=== PATIENT | female | born 1965 | race Caucasian/White ===

== ENCOUNTER 2016-07-21 04:18 | Emergency (ER) | payer SELFPAY ==
[~2016-07-21] VITALS: Ht 157.5 cm; Wt 46.3 kg
--- NOTE | 2016-07-21 04:59 | PHYS DOC ---
Past Medical History Past Medical History: High Cholesterol Additional Past Medical Histor: lupus, vit D diff. Past Surgical History: Additional Past Surgical Histo: ablasion, breast enlargement, R. shoulder Alcohol Use: Occasionally Drug Use: None Adult General Chief Complaint Chief Complaint: PAIN ON URINATION HPI HPI Patient is a 50 year old female who presents with dysuria. Patient reports since Tuesday she has had pressure in her lower abdomen that is accompanied by dysuria and urinary frequency. She now has pain in bilateral lower back. She denies any fever. She has been taking Azo at home with insufficient relief. No other acute complaints. Review of Systems Review of Systems Constitutional: Denies fever or chills Eyes: Denies change in visual acuity or eye pain HENT: Denies nasal congestion or sore throat Respiratory: Denies cough or shortness of breath Cardiovascular: Denies chest pain GI: Lower abdominal pain. Denies nausea, vomiting, bloody stools or diarrhea : Dysuria, frequency Musculoskeletal: Lower back pain Integument: Denies rash or skin lesions Neurologic: Denies headache, focal weakness or sensory changes Current Medications Current Medications Current Medications Medications (Trade) Dose Ordered Sig/Daniel Start Time Stop Time Status Last Admin Dose Admin Ceftriaxone Sodium (Rocephin 1gm Ivpb For Omni) 50 ml @ 100 mls/hr 1X ONCE 07/21/16 05:45 07/21/16 06:14 DC 07/21/16 05:48 100 MLS/HR Morphine Sulfate 4 mg 4 mg 1X ONCE 07/21/16 05:15 07/21/16 05:16 DC 07/21/16 05:15 4 MG Ondansetron HCl (Zofran) 4 mg 1X ONCE 07/21/16 05:15 07/21/16 05:16 DC 07/21/16 05:15 4 MG Sodium Chloride (Iv Sodium Chloride 0.9% 1000ml Bag) 1,000 ml @ 1,000 mls/hr Q1H 07/21/16 05:00 07/21/16 05:59 DC 07/21/16 05:16 1,000 MLS/HR Allergies Allergies Allergies Coded Allergies Type Severity Reaction Last Updated Verified codeine Allergy Unknown rash 07/21/16 Yes levofloxacin Allergy Unknown rash 07/21/16 Yes Physical Exam Physical Exam Constitutional: Well developed, well nourished, no acute distress, non-toxic appearance HENT: Normocephalic, atraumatic, bilateral external ears normal Eyes: EOMI, conjunctiva normal, no discharge Neck: Normal range of motion, no stridor Cardiovascular: Heart rate normal, regular rhythm, no murmur Lungs & Thorax: Bilateral breath sounds clear to auscultation Abdomen: Bowel sounds normal, soft, non-distended, suprapubic TTP without guarding or rebound Skin: Warm, dry, no erythema, no rash Back: B/l CVA tenderness Extremities: No obvious deformity, no edema Neurologic: Alert and oriented X 3, no gross deficits noted Current Patient Data Vital Signs Vital Signs Date Time Temp Pulse Resp B/P Pulse Ox O2 Delivery O2 Flow Rate FiO2 07/21/16 05:15 18 07/21/16 04:40 97.8 106 148/87 95 Room Air 97.8 Lab Values Laboratory Tests Test 07/21/16 04:50 07/21/16 04:59 Urine Collection Type Void Urine Color [place] Urine Clarity Cloudy Urine pH 6.5 Urine Specific [place] 1.015 Urine Protein 100mg/dL (NEG-TRACE) Urine Glucose (UA) Negativemg/dL (NEG) Urine Ketones (Stick) Negativemg/dL (NEG) Urine Blood Moderate (NEG) Urine Nitrite Positive (NEG) Urine Bilirubin Negative (NEG) Urine Urobilinogen Dipstick 1.0mg/dL (0.2 mg/dL) Urine Leukocyte Esterase Large (NEG) Urine RBC Fobs/HPF (0-2) Urine WBC Tntc/HPF (0-4) Urine Squamous Epithelial Cells Few/LPF Urine Bacteria Many/HPF (0-FEW) Urine Mucus Mod/LPF White Blood Count 9.1x10^3/uL (4.0-11.0) Red Blood Count 4.29x10^6/uL (3.50-5.40) Hemoglobin 14.0g/dL (12.0-15.5) Hematocrit 41.8% (36.0-47.0) Mean Corpuscular Volume 97fL (79-100) Mean Corpuscular Hemoglobin 33pg (25-35) Mean Corpuscular Hemoglobin Concent 34g/dL (31-37) Red Cell Distribution Width 12.9% (11.5-14.5) Platelet Count 222x10^3/uL (140-400) Neutrophils (%) (Auto) 54% (31-73) Lymphocytes (%) (Auto) 28% (24-48) Monocytes (%) (Auto) 15% (0-9) H Eosinophils (%) (Auto) 3% (0-3) Basophils (%) (Auto) 1% (0-3) Neutrophils # (Auto) 4.8x10^3uL (1.8-7.7) Lymphocytes # (Auto) 2.5x10^3/uL (1.0-4.8) Monocytes # (Auto) 1.4x10^3/uL (0.0-1.1) H Eosinophils # (Auto) 0.3x10^3/uL (0.0-0.7) Basophils # (Auto) 0.0x10^3/uL (0.0-0.2) Sodium Level 138mmol/L (136-145) Potassium Level 4.5mmol/L (3.5-5.1) Chloride Level 101mmol/L (98-107) Carbon Dioxide Level 28mmol/L (21-32) Anion Gap 9 (6-14) Blood Urea Nitrogen 11mg/dL (7-20) Creatinine 0.7mg/dL (0.6-1.0) Estimated GFR (Cockcroft-Gault) 89.3 BUN/Creatinine Ratio 16 (6-20) Glucose Level 96mg/dL (70-99) Calcium Level 9.4mg/dL (8.5-10.1) Total Bilirubin 0.3mg/dL (0.2-1.0) Aspartate Amino Transferase (AST) 33U/L (15-37) Alanine Aminotransferase (ALT) 42U/L (14-59) Alkaline Phosphatase 71U/L (46-116) Total Protein 8.1g/dL (6.4-8.2) Albumin 3.6g/dL (3.4-5.0) Albumin/Globulin Ratio 0.8 (1.0-1.7) L Lipase 104U/L (73-393) Laboratory Tests 07/21/16 04:59 Laboratory Tests 07/21/16 04:59 EKG EKG [] Radiology/Procedures Radiology/Procedures [] Course & Med Decision Making Course & Med Decision Making Pertinent Labs and Imaging studies reviewed. (See chart for details) Patient is 50-year-old female who presents with dysuria, lower abdominal pain, back pain. Suspect urinary tract infection. Will check UA, labs to evaluate. IV fluids, pain meds, nausea medicine ordered to evaluate. Labs largely unremarkable. UA consistent with UTI. Dose of Rocephin ordered. She has allergy to levofloxacin and adverse reaction to Bactrim, will use a cephalosporin to treat. Patient discharged with prescription for cefixime and short course of tramadol, instructions for close follow-up, return precautions. Dragon Disclaimer Dragon Disclaimer This electronic medical record was generated, in whole or in part, using a voice recognition dictation system. Departure Departure Impression: Primary Impression: UTI (urinary tract infection) Disposition: HOME, SELF-CARE Condition: IMPROVED Referrals: NO PCP (PCP) Patient Instructions: Urinary Tract Infection Additional Instructions: Thank you for allowing us to provide care today in the Emergency Department. Take the provided medication as directed. Use caution when taking the pain medication as it can make you drowsy. Schedule a follow up appointment with your primary care doctor. Return promptly to the Emergency Department if you develop any new or concerning symptoms. Scripts Tramadol Hcl 50 Mg [id number] Mg PO Q6H PRN PAIN #10 TAB Prov:HEATHER BURDEN MD 07/21/16 Cefixime (Suprax)400 Mg [id number] Mg PO DAILY #7 Prov:HEATHER BURDEN MD 07/21/16 HEATHER BURDEN MD Jul 21, 2016 04:59
[2016-07-21] MEDS ORDERED: IV NORMAL SALINE 1000ML BAG 1,000 ML IV SCH (05:00)
[2016-07-21 05:05] LABS: BILIRUBIN,URINE NEGATIVE (NEG); GLUCOSE,URINE NEGATIVE (NEG); NITRITE,URINE POSITIVE (NEG); PH,URINE 6.5; PROTEIN,URINE 100 mg/dL (NEG-TRACE)
[2016-07-21 05:10] LABS: BASO % 1 % (0-3); EOS % 3 % (0-3); HEMATOCRIT 41.8 % (36.0-47.0); LYMPH # 2.5 x10^3/uL (1.0-4.8); LYMPH % 28 % (24-48); MEAN CORPUSCULAR HEMOGLOBIN 33 pg (25-35); MEAN CORPUSCULAR HGB CONC 34 g/dL (31-37); MEAN CORPUSCULAR VOLUME 97 fL (79-100); MONO % 15 % (0-9); NEUT % 54 % (31-73); PLATELET COUNT 222 x10^3/uL (140-400); RED BLOOD COUNT 4.29 x10^6/uL (3.50-5.40); RED CELL DISTRIBUTION WIDTH 12.9 % (11.5-14.5); WHITE BLOOD COUNT 9.1 x10^3/uL (4.0-11.0)
[2016-07-21] MEDS ORDERED: ONDANSETRON PF 4 MG/2 ML VIAL. IV ONE (05:15)
[2016-07-21] MEDS ORDERED: MORPHINE SULFATE 4 MG/ML DISP.SYRIN. IV ONE (05:15)
[2016-07-21 05:21] LABS: CALCIUM 9.4 mg/dL (8.5-10.1); CREATININE 0.7 mg/dL (0.6-1.0); GFR 89.3; POTASSIUM 4.5 mmol/L (3.5-5.1)
[2016-07-21 05:27] LABS: ALBUMIN 3.6 g/dL (3.4-5.0); ALBUMIN/GLOBULIN RATIO 0.8 (1.0-1.7); TOTAL BILIRUBIN 0.3 mg/dL (0.2-1.0); TOTAL PROTEIN 8.1 g/dL (6.4-8.2)
[2016-07-21 05:27] LABS: BACTERIA,URINE MANY /HPF (0-FEW); RBC,URINE FOBS /HPF (0-2); WBC,URINE TNTC /HPF (0-4)
[2016-07-21 05:28] LABS: SQUAMOUS EPITHELIAL CELL,UR FEW /LPF
[2016-07-21] MEDS ORDERED: CEFTRIAXONE 1GM IVPB FOR OMNI 50 ML IV ONE (05:45)
[2016-07-21] MEDS ORDERED: CEFI400C PO (06:02)
[2016-07-21] MEDS ORDERED: TRAM50TA PO (06:02)
[2016-07-21 06:26] VITALS: BP 124/72
== END 2016-07-21 06:33 | disposition home or self-care (01) ==
LOC: ER 04:18
DX: N39.0 Urinary tract infection, site not specified (principal); E78.00 Pure hypercholesterolemia, unspecified; Z88.1 Allergy status to other antibiotic agents; Z88.5 Allergy status to narcotic agent
CPT/HCPCS: 36415; 80053; 81001; 83690; 85027; 87086; 96361; 96365; 96375; 99284; J0690; J2270; J2405; J7030

== ENCOUNTER 2018-08-05 23:36 | Emergency (ER) | payer BC ==
[~2018-08-05] VITALS: Ht 157.5 cm; Wt 53.5 kg
[~2018-08-05 23:36] MED LIST: CEFI400C PO; TRAM50TA PO
[2018-08-05 23:55] VITALS: BP 153/87
[2018-08-06 00:09] LABS: BASO # 0.1 x10^3/uL (0.0-0.2); BASO % 1 % (0-3); EOS # 0.2 x10^3/uL (0.0-0.7); EOS % 2 % (0-3); HEMATOCRIT 43.3 % (36.0-47.0); HEMOGLOBIN 14.5 g/dL (12.0-15.5); LYMPH # 3.4 x10^3/uL (1.0-4.8); LYMPH % 36 % (24-48); MEAN CORPUSCULAR HEMOGLOBIN 33 pg (25-35); MEAN CORPUSCULAR HGB CONC 33 g/dL (31-37); MEAN CORPUSCULAR VOLUME 98 fL (79-100); MONO # 0.9 x10^3/uL (0.0-1.1); MONO % 9 % (0-9); NEUT # 4.8 x10^3uL (1.8-7.7); NEUT % 52 % (31-73); PLATELET COUNT 260 x10^3/uL (140-400); RED BLOOD COUNT 4.43 x10^6/uL (3.50-5.40); WHITE BLOOD COUNT 9.3 x10^3/uL (4.0-11.0)
[2018-08-06 00:35] LABS: CALCIUM 9.2 mg/dL (8.5-10.1); CREATININE 0.8 mg/dL (0.6-1.0); GFR 75.9; POTASSIUM 3.9 mmol/L (3.5-5.1)
[2018-08-06 00:41] LABS: ALBUMIN 4.1 g/dL (3.4-5.0); ALBUMIN/GLOBULIN RATIO 0.9 (1.0-1.7); MAGNESIUM 2.5 mg/dL (1.8-2.4); TOTAL BILIRUBIN 0.2 mg/dL (0.2-1.0); TOTAL PROTEIN 8.6 g/dL (6.4-8.2)
[2018-08-06 00:50] LABS: CREATINE KINASE 92 U/L (26-192)
[2018-08-06 00:52] LABS: FREE T4 0.93 ng/dL (0.76-1.46); THYROID STIM HORMONE (TSH) 2.356 uIU/mL (0.358-3.74)
[2018-08-06] MEDS ORDERED: LORazepam 1 MG TABLET PO ONE (01:00)
--- NOTE | 2018-08-06 01:11 | PHYS DOC ---
Past Medical History Past Medical History: High Cholesterol Additional Past Medical Histor: lupus, vit D diff., LUPUS FOG (MEMORY LOSS) Past Surgical History: Additional Past Surgical Histo: ablasion, breast enlargement, R. shoulder Alcohol Use: Occasionally Drug Use: None Adult General Chief Complaint Chief Complaint: Palpitations HPI HPI 52-year-old female presents with report of palpitations with concern for possible "atrial fibrillation". Patient reports has had similar occurrences but has never lasted as long as this one. Patient reports this episode lasted approximately one hour. Patient reports family history. Denies trauma. Patient does report some increased anxiety due to life stressors. Spouse does report some concern as patient has been drinking more alcohol recently. Review of Systems Review of Systems Constitutional: Denies fever or chills [] Eyes: Denies change in visual acuity, redness, or eye pain [] HENT: Denies nasal congestion or sore throat [] Respiratory: Denies cough or shortness of breath [] Cardiovascular: Denies chest pain; reports palpitations GI: Denies abdominal pain, nausea, vomiting, or diarrhea [] : Denies dysuria or hematuria [] Musculoskeletal: Denies back pain or joint pain [] Integument: Denies rash or skin lesions [] Neurologic: Denies headache, focal weakness or sensory changes [] Psychiatric: Reports anxiety, reports ETOH abuse, reports increased life stressors Complete systems were reviewed and found to be within normal limits, except as documented in this note. Current Medications Current Medications Current Medications Medications (Trade) Dose Ordered Sig/Daniel Start Time Stop Time Status Last Admin Dose Admin Lorazepam (Ativan) 0.5 mg 1X ONCE 08/06/18 01:00 08/06/18 01:01 DC 08/06/18 00:58 0.5 MG Allergies Allergies Allergies Coded Allergies Type Severity Reaction Last Updated Verified codeine Allergy Intermediate rash 08/06/18 Yes levofloxacin Allergy Intermediate rash 08/06/18 Yes Physical Exam Physical Exam Constitutional: Well developed, well nourished, crying, appears anxious HENT: Normocephalic, atraumatic, oropharynx moist Eyes: Conjunctiva normal, no discharge. [] Neck: Normal range of motion, no tenderness, supple Cardiovascular: Heart rate regular rhythm, no murmur [] Lungs & Thorax: Bilateral breath sounds clear to auscultation [] Abdomen: Bowel sounds normal, soft, no tenderness Skin: Warm, dry, no erythema, no rash. [] Extremities: No tenderness, ROM intact, no edema. [] Neurologic: Alert and oriented X 3, normal motor function, normal sensory function, no focal deficits noted. [] Psychologic: Affect anxious Current Patient Data Vital Signs Vital Signs Date Time Temp Pulse Resp B/P (MAP) Pulse Ox O2 Delivery O2 Flow Rate FiO2 08/05/18 23:55 97.5 88 32 153/87 (109) 94 Room Air 97.5 Lab Values Laboratory Tests Test 08/05/18 00:01 08/06/18 00:01 White Blood Count 9.3 x10^3/uL (4.0-11.0) Red Blood Count 4.43 x10^6/uL (3.50-5.40) Hemoglobin 14.5 g/dL (12.0-15.5) Hematocrit 43.3 % (36.0-47.0) Mean Corpuscular Volume 98 fL (79-100) Mean Corpuscular Hemoglobin 33 pg (25-35) Mean Corpuscular Hemoglobin Concent 33 g/dL (31-37) Red Cell Distribution Width 13.0 % (11.5-14.5) Platelet Count 260 x10^3/uL (140-400) Neutrophils (%) (Auto) 52 % (31-73) Lymphocytes (%) (Auto) 36 % (24-48) Monocytes (%) (Auto) 9 % (0-9) Eosinophils (%) (Auto) 2 % (0-3) Basophils (%) (Auto) 1 % (0-3) Neutrophils # (Auto) 4.8 x10^3uL (1.8-7.7) Lymphocytes # (Auto) 3.4 x10^3/uL (1.0-4.8) Monocytes # (Auto) 0.9 x10^3/uL (0.0-1.1) Eosinophils # (Auto) 0.2 x10^3/uL (0.0-0.7) Basophils # (Auto) 0.1 x10^3/uL (0.0-0.2) Sodium Level 142 mmol/L (136-145) Potassium Level 3.9 mmol/L (3.5-5.1) Chloride Level 106 mmol/L (98-107) Carbon Dioxide Level 23 mmol/L (21-32) Anion Gap 13 (6-14) Blood Urea Nitrogen 10 mg/dL (7-20) Creatinine 0.8 mg/dL (0.6-1.0) Estimated GFR (Cockcroft-Gault) 75.9 BUN/Creatinine Ratio 13 (6-20) Glucose Level 96 mg/dL (70-99) Calcium Level 9.2 mg/dL (8.5-10.1) Magnesium Level 2.5 mg/dL (1.8-2.4) H Total Bilirubin 0.2 mg/dL (0.2-1.0) Aspartate Amino Transferase (AST) 20 U/L (15-37) Alanine Aminotransferase (ALT) 36 U/L (14-59) Alkaline Phosphatase 74 U/L (46-116) Creatine Kinase 92 U/L (26-192) Creatine Kinase MB (Mass) < 0.5 ng/mL (0.0-3.6) Creatine Kinase MB Relative Index % (0-4) Troponin I Quantitative < 0.017 ng/mL (0.000-0.055) Total Protein 8.6 g/dL (6.4-8.2) H Albumin 4.1 g/dL (3.4-5.0) Albumin/Globulin Ratio 0.9 (1.0-1.7) L Lipase 249 U/L (73-393) Thyroid Stimulating Hormone (TSH) 2.356 uIU/mL (0.358-3.74) Free Thyroxine 0.93 ng/dL (0.76-1.46) Free Triiodothyronine (T3) pg/mL 2.28 pg/mL (2.18-3.98) Ethyl Alcohol Level 241 mg/dL (0-10) H Laboratory Tests 08/05/18 00:01 Laboratory Tests 08/05/18 00:01 EKG EKG @2352 NSR at 81bpm, NO ST elevation Radiology/Procedures Radiology/Procedures [] Course & Med Decision Making Course & Med Decision Making Pertinent Lab studies reviewed. (See chart for details) Patient presents with report of palpitations. Reports increased life stressors. Patient appears very anxious. EKG stable. Labs obtained and posted to chart. Symptomatic treatment provided with IV Ativan with interval improvement. Spouse had also reported some concern for possible alcohol abuse. Alcohol level greater than 300. Patient stable for discharge with outpatient follow-up with PCP. Patient also advised concern for possible alcohol abuse. Drug and alcohol rehabilitation pamphlet provided. Discussed findings and plan with patient and family, who acknowledge understanding and agreement. Dragjanelle Disclaimer Dragon Disclaimer This electronic medical record was generated, in whole or in part, using a voice recognition dictation system. Departure Departure Impression: Primary Impression: Palpitations Additional Impression: Alcohol abuse Disposition: HOME, SELF-CARE Condition: STABLE Referrals: UNKNOWN PCP NAME (PCP) EMERALD CANTU MD Patient Instructions: Anxiety and Panic Attacks, Legn-jc-Csep, How Much is Too Much Alcohol, [id number], Palpitations, [id number] Problem Qualifiers GABY MEDRANO DO Aug 06, 2018 01:11
--- NOTE | 2018-08-07 08:08 | EKG ---
[facility] [address] [place] [address] Test Date: 2018-08-05 Test Time: 23:52:25 Pat Name: ARETHA MONTENEGRO Department: Room: Gender: F Incident Manager: : [id number] Requested By: GABY MEDRANO Order Number: [id number] Reading MD: Bobo William MD Measurements Intervals [place] Rate: 81 P: 62 CT: 150 QRS: 31 QRSD: 70 T: 66 QT: 360 QTc: 424 Interpretive Statements SINUS RHYTHM Electronically Signed On 08-08-2018 6:58:55 [employer] OPERATOR by Bobo William MD
== END 2018-08-06 01:25 | disposition home or self-care (01) ==
LOC: ER 23:36
DX: F10.10 Alcohol abuse, uncomplicated (principal); Y90.8 Blood alcohol level of 240 mg/100 ml or more; R00.2 Palpitations; F41.9 Anxiety disorder, unspecified; E78.00 Pure hypercholesterolemia, unspecified; Z98.890 Other specified postprocedural states; Z88.5 Allergy status to narcotic agent; Z88.1 Allergy status to other antibiotic agents
CPT/HCPCS: 36415; 80053; 82553; 83690; 83735; 84439; 84443; 84481; 84484; 85025; 93005; 99284; G0480